=== PATIENT | male | born 1995 | race Caucasian/White ===

== ENCOUNTER 2018-02-24 11:11 | Emergency (ER) | payer OTHER ==
[~2018-02-24] VITALS: Ht 182.9 cm; Wt 122.0 kg
[~2018-02-24 11:11] MED LIST: AMLO5TAB88 PO
[2018-02-24] MEDS ORDERED: SODIUM CHLORIDE 0.9% 1,000 ML IV ONE (19:10)
[2018-02-24] MEDS ORDERED: LEVOFLOXACIN 750MG PREMIX 150 ML IV ONE (19:15)
[2018-02-24 20:14] LABS: BASOPHILS % 0.9 % (0.0-2.0); EOSINOPHILS % 1.4 % (0.0-5.0); HEMATOCRIT. 41.8 % (42.0-52.0); HEMOGLOBIN. 14.4 g/dL (14.0-18.0); LYMPHOCYTES % 37.2 % (20.0-50.0); MEAN CORPUSCULAR HEMOGLOBIN 26.6 pg (28.0-32.0); MEAN CORPUSCULAR VOLUME 77.2 fL (80.0-94.0); MEAN PLATELET VOLUME 8.3 fl (7.4-10.4); MONOCYTES % 6.5 % (2.0-8.0); PLATELET 265 x1000/uL (130-400); RED BLOOD CELL COUNT 5.42 mill/uL (4.7-6.1); RED CELL DISTRIBUTION WIDTH 13.7 % (11.6-14.6)
[2018-02-24 20:20] LABS: CHLORIDE 104 mEq/L (98-107)
[2018-02-24 20:26] LABS: PARTIAL THROMBOPLASTIN TIME 30.3 sec (23.4-31.0)
[2018-02-25 14:16] VITALS: BP 134/72
== END 2018-02-25 14:17 | disposition home or self-care (01) ==
LOC: ER 11:11 → EDBEDREQ 21:28 → EDBEDREQTM 21:28 → CANBEDREQ 21:54 → EDBEDREQDT 02-25 06:32 → EDBEDREQTM 02-25 06:32 → CANBEDREQ 02-25 06:40 → ER 02-25 14:17
DX: R04.2 Hemoptysis (principal); R05 Cough; R53.1 Weakness; R03.0 Elevated blood-pressure reading, without diagnosis of hypertension; Z87.891 Personal history of nicotine dependence; Z59.0 Homelessness
CPT/HCPCS: 36415; 71045; 71250; 80053; 83605; 83880; 84484; 85025; 85610; 85730; 87040; 87086; 93005; 96365; 96366; 99285; J1956; J7030